=== PATIENT | male | born 1935 | race Caucasian/White ===

== ENCOUNTER → 2020-04-15 | Outpatient (CLI) | payer OTHER ==
[~2020-04-15] MED LIST: BUMETANIDE 1 MG1 M1 PO; CALCIUM500 MG PO; CARBIDOPA-LEVO1 EAC5 PO; CHILDREN'S ZYRT10 M1 PO; FEOSOL325 M1 PO; FLONASE 0.05%50 MCG NARES; FOLIC ACID1 MG PO; MAGNESIUM250 M1 PO; NEXIUM 40 MG CA40 M1 PO; PREDNISOLONE ACE5 ML OPHTHALMIC; SIMVASTATIN80 MG PO; TIZANIDINE HCL4 M1 PO; TOPROL XL50 MG PO; VITAMIN C500 M1 PO; VITAMIN C500 M2 PO; VITAMIN D31250 MC1 PO; ZYRTEC10 M4 PO
[2020-04-15 10:40] VITALS: BP 112/44; BP 136/65
[2020-04-15 13:13] VITALS: BP 136/65; BP 147/75; BP 163/73
--- NOTE | 2020-04-15 15:40 | NUR ---
IN FOR BLOOD TRANSFUSION FOR ANEMIA FROM POSSIBLE GI BLEED. HGB 5.7. T&C DONE. TRANSFUSED 2 UNITS LPPC'S AND TOLERATED WELL WITH NO SIGNS AND SYMPTOMS OF TRANSFUSION REACTION NOTED. REMOVED IV AND DISMISSED IN STABLE CONDITION.
== END ==
LOC: OPONC 08:40
PROVIDERS: ATTEND Family Medicine
DX: D64.9 Anemia, unspecified (principal)
CPT/HCPCS: 91030